=== PATIENT | female | born 1975 | race Two or more races ===

== ENCOUNTER 2023-11-16 15:30 | Outpatient (REF) | payer OTHER, SELFPAY | END 2023-11-16 15:31 | disposition home or self-care (01) | LOC: LAB 15:30 | PROVIDERS: PCP Family Medicine; Visit Provider Obstetrics & Gynecology | DX: N84.1 Polyp of cervix uteri (principal) | CPT/HCPCS: 88305 ==

== ENCOUNTER 2024-02-06 10:54 | Outpatient (OUT) | payer OTHER, SELFPAY ==
--- NOTE | 2024-02-06 11:06 | ECG_ITS ---
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
== END 2024-02-06 10:55 | disposition home or self-care (01) ==
LOC: PST 10:56
PROVIDERS: PCP Family Medicine; Visit Provider Obstetrics & Gynecology
DX: Z01.810 Encounter for preprocedural cardiovascular examination (principal); R10.2 Pelvic and perineal pain; N84.1 Polyp of cervix uteri; N94.89 Other specified conditions associated with female genital organs and menstrual cycle
CPT/HCPCS: 93005

== ENCOUNTER 2024-02-17 07:06 | Day surgery (SDC) | payer OTHER, SELFPAY ==
[2024-02-06 11:31] VITALS: BP 113/72; PULSE 78; TEMP 36.3; O2SAT 97; BMI 26.8
[2024-02-17] VITALS (10 sets, daily range): BP systolic 98–114; BP diastolic 56–80; PULSE 66–83; TEMP 36.4–36.6; O2SAT 95–99; BMI 27.1
--- OUTSIDE RECORDS SUMMARY | 2024-02-17 07:08 | XMS_ITS | CCD ---
Author Organization [facility] Care Team Providers Care Platform Builder Name Role Phone Hawa DO, Roxanne G Primary Care Provider Maritza Chaudhry MD Primary Care Provider CHERI BALL Attending Unavailable CHERI BALL Referring Unavailable HAWA, ROXANNE G Primary Care Unavailable DO Kinza Nava Attending Provider Bashir MOLD WORKER, Heidi Unavailable HAWA, ROXANNE G Referring Unavailable ELIOT BROWN Attending Unavailable PENELOPE MUSE Attending Unavailable HAWA, ROXANNE G Referring Unavailable PENELOPE MUSE Attending Unavailable HAWA, ROXANNE G Referring Unavailable TATJOHNNY HUITRON Attending Unavailable HAWA, ROXANNE G Referring Unavailable PENELOPE MUSE Attending Unavailable HAWA, ROXANNE G Referring Unavailable ALMAZ PENELOPE Attending Unavailable HAWA, ROXANNE G Referring Unavailable TATTERSJOHNNY MORRIS Attending Unavailable HAWA, ROXANNE G Referring Unavailable PENELOPE MUSE Attending Unavailable HAWA, ROXANNE G Referring Unavailable PENELOPE MUSE Attending Unavailable HAWA, ROXANNE G Referring Unavailable BLACKSTON, ELIOT T Attending Unavailable HAWA, ROXANNE G Referring Unavailable KAMPFERHEIDI Attending Unavailable ELIOT BROWN T Attending Unavailable HAWA, ROXANNE G Referring Unavailable BLACKSTON, ELIOT T Attending Unavailable HAWA, ROXANNE G Referring Unavailable HAWA, ROXANNE G Attending Unavailable CHERI BALL Attending Unavailable CHERI BALL Referring Unavailable CHERI BALL Attending Unavailable JR. COLÓN GEORGE C Attending Unavaila ble HEIDI CAMEJO Attending Unavailable HEIDI CAMEJO Attending Unavailable HEIDI CAMEJO Attending Unavailable JS GONSALEZ Attending Unavailable JS GONSALEZ Referring Unavailable KINZA NAVA Attending Unavailable JS GONSALEZ Referring Unavailable KINZA NAVA Attending Unavailable Kinza Nava Attending Unavailable Kinza Nava Admitting Unavailable Medications Current Medications Medication Drug Class(es) Dates Sig (Normalized) Sig (Original) chondroitin sulfates 1200 mg / glucosamine sulfate 1500 mg oral capsule (12 sources) Glucosamine-Mandeep droi tin 500-400 MG capsule Glucosamine Chondro Complex Active cyclobenzaprine hydrochloride 10 mg oral tablet (6 sources) Muscle Relaxant Start: 05-16-2023 End: 05-21-2023 take 1 tablet by mouth three times daily as needed for muscle spasms cyclobenzaprine (Flexeril) 10 MG tablet Indications: Chronic right shoulder pain Take 1 tablet (10 mg) by mouth 3 (three) times a day as needed for muscle spasms for up to 5 days 15 tablet 0 05/16/2023 05/21/2023 Active Fish Oils (10 sources) omega-3 (FISH OI L) 300 MG capsule Fish Oil 0 Active loratadine 10 mg oral tablet (12 sources) loratadine (Claritin) 10 MG tablet 1 (one) time each day at the same time Active Multiple Vitamins-Minerals (MULTI COMPLETE PO) (12 sources) Multiple Vitamins-Minerals (MULTI COMPLETE PO) 1 (one) time each day at the same time Active Multiple Vitamin s-Minerals (MULTI COMPLETE PO) 1 (one) time each day at the same time 0 Active potassium nitrate 0.05 mg/mg / sodium fluoride 0.011 mg/mg toothpaste (12 sources) Start: 02-03-2023 Sodium Fluorid e 5000 Sensitive 1.1-5 % dental gel BRUSH WITH A PEA SIZED AMOUNT TWICE DAILY (IN PLACE OF REGULAR TOOTHPASTE) 02/03/2023 Active terbinafine 250 mg oral tablet (10 sources) Allylamine Antifungal Start: 03-16-2023 End: 06-14-2023 take 1 tablet by mouth in the morning terbinafine (LamISIL) 250 MG tablet Indications: Onychomycosis Take 1 tablet (250 mg) by mouth in the morning. 90 tablet 1 03/16/2023 06/14/2023 Active Problems Active Problems Problem Classification Problem Date Documented Date Episodic/Chronic Abdominal pain (2 sources) Pain in female pelvis; Translations: [Pelvic and perineal pain] Onset: 01-19-2024 01-19-2024 Episodic Disorders of lipid metabolism (12 sources) Mixed hyperlipidemia; Translations: [Mixed hyperlipidemia] Onset: 03-16-2023 03-16-2023 Chronic Menopausal disorders (12 sources) Perimenopausal state; Translations: [Menopausal and female climacteric states] Onset: 03-16-2023 03-16-2023 Chronic Menstrual disorders (20 sources) Amenorrhea; Translations: [Amenorrhea, unspecified] Onset: 03-16-2023 03-16-2023 Chronic Nonmalignant breast conditions (12 sources) Fibrocystic change of left breast; Translations: [Diffuse cystic mastopathy of left breast] Onset: 03-16-2023 03-16-2023 Chronic Other connective tissue disease (3 sources) Musculoskeletal disorder of the neck; Translations: [Disorder of muscle, unspecified] 05-12-2023 Episodic Other female genital disorders (2 sources) Polyp of cervix; Translations: [Polyp of cervix uteri] Onset: 01-19-2024 01-19-2024 Episodic Other female genital disorders (2 sources) Lesion of endometrium; Translations: [Other specified conditions associated with female genital organs and menstrual cycle] Onset: 01-19-2024 01-19-2024 Episodic Other non-traumatic joint disorders (1 source) Other specific joint derangements of right shoulder, not elsewhere classified; Translations: [Other specific joint derangements of right shoulder, not elsewhere classified] Onset: 06-27-2023 Chronic Other non-traumatic joint disorders (3 sources) Shoulder pain; Translations: [Pain in right shoulder] 05-12-2023 Episodic Other non-traumatic joint disorders (5 sources) Chronic pain of right upper limb; Translations: [Pain in right shoulder] 05-12-2023 Episodic Residual codes; unclassified (2 sources) Flushing; Translations: [Flushing] Onset: 01-19-2024 01-19-2024 Episodic Past or Other Problems Problem Classification Problem Date Documented Da te Episodic/Chronic Fracture of lower limb (12 sources) Closed fracture of metatarsal bone; Translations: [Fracture of unspecified metatarsal bone(s), unspecified foot, initial encounter for closed fracture] Onset: 03-16-2023 03-16-2023 Episodic Other skin disorders (12 sources) Ingrowing nail; Translations: [Ingrowing nail] Onset: 03-16-2023 03-16-2023 Episodic Phlebitis; thrombophlebitis and thromboembolism (12 sources) Acute deep venous thrombosis of tibial vein of right leg; Translations: [Acute embolism and thrombosis of right tibial vein] Onset: 03-16-2023 03-16-2023 Episodic Urinary tract infections (12 sources) Urinary tract infectious disease; Translations: [Urinary tract infection, site not specified] Onset: 03-16-2023 03-16-2023 Episodic Varicose veins of lower extremity (12 sources) Varicose veins of lower extremity; Translations: [Asymptomatic varicose veins of unspecified lower extremity] Onset: 03-16-2023 03-16-2023 Episodic Results Test Name Value Interpretation Reference Range Facility Pathology Request for Lab Co rpon 11-16-2023 Pathology Request for Lab Kalani Normal [facility] Comment on above: Order Comment: PATHO LOGY GRAIN WEIGHER SPECIMEN Result Comment: See report. Scanned copy available in EMR. PERFORMED BY: [place] [address] PATHOLOGIST SOFTWARE [employer]IONS ARCHITECT GENI NEGRO M.D. Performed By: #### P ATH TO [facility] #### [address] US PELVIS TRANSVAGINALon US PELVIS TRANSVAGINAL EXAM: Pelvic Ultrasound, Transvaginal. REASON FOR EXAM: Pelvis pain, irregular bleeding. COMPARISON: None TECHNIQUE: High-resolution ultrasound is performed in the pelvis with color flow Doppler. FINDINGS: Transabdominal Imaging - Not performed. Transvaginal Imaging: Uterus is typical in configuration. There are multiple hypoechoic myometrial masses. The largest of these anteriorly measures 2.0 and 1.6 cm respectively. Smaller similar-appearing hypoechoic masses are noted perhaps elsewhere. There are nabothian cysts. Endometrium is not well depicted but echogenic and 4 mm. There is trace free pelvic fluid. Right ovary appears normal with a appropriate Doppler flow. Left ovary appears normal with appropriate Doppler flow. No adnexal mass is apparent Measurements: Uterus: 9.1 x 6.0 x 4.7 cm EM: 0.4 cm Right Ovary: 3.1 x 1.8 x 2.0 cm Left Ovary: 2.2 x 1.1 x 1.3 cm IMPRESSION: Hypoechoic myometrial masses likely representing fibroids. *This report is generated using voice recognition reporting (Giggzo). On occasion Philz Coffeecribe erroneously drops words from the report or replaces the spoken word with similar sounding words. Please call with any questions/concerns regarding this report.* Dictated and transcribed 10/31/23/dpd This report has been electronically signed and approved by the interpreting radiologist. Electronically Signed Carl Conde M.D. 2023-11-01 08:17:49 Normal Not Available Cytology Cervical or vaginal smear or scraping studyOrdered By: Mel Rosenberg on 10-18-2023 SANTIAGO Lindsey e MR SHOULDER RT WO CONTon MR SHOULDER RT WO CONT MR SHOULDER RT WO CONT History: Right shoulder pain for 4 months Exam/Technique: Multiplanar, multisequence MR imaging is obtained of the right shoulder without intravenous contrast. Comparison: No recent radiographs available Findings: AC joint and humeral head: No evidence of os acromiale or Hill-Sachs lesion. Type II acromial undersurface paralleling the shape of the humeral head. No significant bursal fluid. Minor subcortical change of the humeral head compatible with changes from insertional tendinosis. Rotator cuff tendons: There is minimal tendinosis distal infraspinatus fibers. No evidence of rotator cuff tear. Normal volume and signal intensity of the supraspinatus, infraspinatus and subscapularis. Biceps tendon: Normal signal intensity with intact attachment to the superior labral anchor. Joint space, bony glenoid and labrum: No joint fluid or effusion. Labrum appears intact on this nonarthrographic study. No focal cartilage defects of the glenoid or humeral surface. IMPRESSION: * Essentially negative/normal exam. Minimal degenerative change of the humeral head. No evidence rotator cuff tear, inflammatory focus or specific abnormality to correlate with the patient's symptoms. Consider referred pain. Finalized by Quinn Gibson DO on 06/29/2023 9:59 AM Normal [facility] BI MAMMOGRAM SCREENING TOMOS YNTHESIS BILATERALon 04-08-2023 BI MAMMOGRAM SCREENING TOMOSYNTHESIS BILATERAL This is a summary report. The complete report is available in the patient's medical record. If you cannot access the medical record, please contact the sending organization for a detailed fax or copy. EXAMINATION: BI MAMMOGRAM SCREENING TOMOSYNTHESIS BILATERAL CLINICAL HISTORY: screening COMPARISON: April 07, 2022 . RESULT: Digital mammography and 3D tomosynthesis of bilateral breasts was performed. There are scattered areas of fibroglandular density. There is no suspicious mass, asymmetry, architectural distortion, or calcification. Overall appearance stable. IMPRESSION: BIRADS 1 - Negative. Follow-up: Routine Screening Mamm . Board Certified Radiologists. Accredited by the ACR and FDA. MAMMOGRAPHY IS VERY IMPORTANT TO YOUR HEALTH. THE [employer] GUIDELINES RECOMMEND THAT WOMEN 40 YEARS OF AGE AND OLDER SHOULD HAVE A MAMMOGRAM EVERY YEAR. A REMINDER LETTER WILL BE SENT AT THE APPROPRIATE TIME. THIS FACILITY UTILIZES A REMINDER SYSTEM TO ENSURE ALL PATIENTS RECEIVE REMINDER NOTIFICATIONS AT THE APPROPRIATE TIME BASED ON THE RECOMMENDATIONS OF THIS EXAM. THIS INCLUDES REMINDERS FOR ROUTINE SCREENING MAMMOGRAMS, DIAGNOSTIC MAMMOGRAMS IN WHICH THE PATIENT IS ASKED TO RETURN FOR ADDITIONAL VIEWS, OR OTHER BREAST IMAGING INTERVENTIONS WHEN APPROPRIATE. THE PATIENT WILL BE PLACED IN THE APPROPRIATE REMINDER SYSTEM INCLUDING A REMINDER AT THE APPROPRIATE TIME FOR ANY PENDING ADDITIONAL VIEWS. TRANSCRIBED BY: ELECTRONICALLY SIGNED BY: Darrell Jaramillo MD Normal Not Available Q - TISSUE PATHOLOGYon 05-13 A COMMENT The specimen is negative for definitive evidence of atypia and malignancy. Normal [facility] Laborer Comment on above: Order Comment: [facility] Testing performed at: [facility], [address], [address], [place], [address], Bag Tester: Tahmina Ornelas [facility] Collection Date/Time: [id number] [facility] Results Received Date/Time: [id number] [facility] Reported Date/Time: [id number] FASTING: UNKNOWN Performed By: #### 1 25F #### [facility] [address] [place] [address] A DIAGNOSIS SEE NOTE Normal [facility] Laborer Comment on above: Order Comment: [facility] performed at: [facility], [address], [address], [place] [address], Bag Tester: Tahmina Ornelas [facility] Collection Date/Time: [facility] Results Received Date/Time: [facility] Reported Date/Time: FASTING: UNKNOWN Result Comment: Frag ment compatible with benign endometrial polyp. Secretory endometrium with patchy stromal breakdown. Fragments of benign endocervical tissue and squamous epithelium. Performed By: #### 1 25F #### [facility] [address] [place] [address] A GROSS DESCRIPTION SEE NOTE Normal [place] Specialist Comment on above: Order Comment: [facility] Testing performed at: [facility], [facility], [facility] [place], [address] [place] [address], Bag Tester: Tahmina Ornelas [facility] Collection Date/Time: [facility] Results Received Date/Time: [facility] Reported Date/Time: FASTING: UNKNOWN Result Comment: Rece ived in formalin is a specimen labeled endometrial biopsy that consists of multiple, irregular fragments of sanchez tissue admixed with blood and mucoid material, measuring in aggregate 2.5 x 1.0 x 0.2 cm. Submitted entirely in one cassette(s). SW Performed By: #### 1 25F #### [facility] [address] [place] [address] A SOURCE Endometrium, biopsy: Normal [facility] Laborer Comment on above: Order Comment: [facility] Testing performed at: [facility], [facility], [address] [facility], [address], [place], [place], [address] [place] [address], Bag Tester: Tahmina Ornelas [facility] Collection Date/Time: [facility] Results Received Date/Time: [facility] Reported Date/Time: FASTING: UNKNOWN Performed By: #### 1 25F #### [facility] [address] [place] [address] CLINICAL INFORMATION N92.1 Normal [facility] Laborer Comment on above: Order Comment: [facility] performed at: [facility], [facility], [address], [address], [place], [address], Bag Tester: Tahmina Ornelas [facility] Collection Date/Time: [facility] Results Received Date/Time: [facility] Reported Date/Time: FASTING: UNKNOWN Performed By: #### 1 25F #### [facility] [address] [place] [address] Pathologist Cyto stain Nom (Cvx/Vag) [ID] SEE NOTE Normal [facility] Comment on above: Order Comment: [facility] performed at: [facility], [facility], [address], [address], [place], [address], Bag Tester: Tahmina Ornelas [facility] Collection Date/Time: [facility] Results Received Date/Time: [facility] Reported Date/Time: FASTING: UNKNOWN Result Comment: Misti Torrez M.D. Board certified in Anatomic Pathology and Clinical Pathology (electronic signature) [phone] Performed By: #### 1 25F #### [facility] [address] [place] [address] US Pelvic, Transvaginalon US Pelvic, Transvaginal FINDINGS: Uterus 9.6 x 7.8 x 5.8 cm Endometrium 11 mm Right Ovary4.7 x 3.3 x 2.8 cm Left Ovary3.2 x 1.8 x 1.6 cm Retroversion of the uterine body/fundus. Heterogeneous areas consistent with at least three intramural fibroids deep within the myometrium with extrinsic impression, mild invasion upon the submucosal space, all three approximating 1 x 2 cm. Heterogeneous endometrium, mild thickening within the fundus, no cystic changes or focal mass. Bilateral ovarian benign appearing, simple, septated cysts, largest right 2.0 x 1.3 x 2.1 cm, one on the left 1.0 x 1.4 x 1.6 cm. Small amount of fluid within the left adnexa and anterior cul-de-sac. IMPRESSION: 1. Uterine findings consistent with at least three intramural/partial submucosal fibroids 2. Heterogeneous hypoechogenicity of the endometrium, no focal mass, presumed submucosal fibroid involvement. Recommend at minimum follow-up examinations if tissue sampling is not performed. Report reported and signed by Darrell Jaramillo on 05/05/2021 [id number] Normal [facility] Vital Signs Date Time Vital Sign Value Performing Clinician Soy malloy 01-19-2024 09:37-0400 Body height 167.6 cm Kinza Brandy DO Work Phone: [facility] 01-19-2024 09:37-0400 Body mass index (BMI) [Ratio] 27.12 kg/m2 Kinza Brandy DO Work Phone: [facility] 01-19-2024 09:37-0400 Body weight 76.2 kg Kinza Brandy DO Work Phone: [facility] 01-19-2024 09:37-0400 Diastolic blood pressure 74 mm[Hg] Kinza Brandy DO Work Phone: [facility] 01-19-2024 09:37-0400 Systolic blood pressure 116 mm[Hg] Kinza Brandy DO Work Phone: [facility] 05-16-2023 10:06-0500 Body height 167.6 cm Heidi Camejo MOLD WORKER Work Phone: [facility] 05-16-2023 10:06-0500 Body mass index (BMI) [Ratio] 27.37 kg/m2 Heidi Camejo MOLD WORKER Work Phone: [facility] 05-16-2023 10:06-0500 Body weight 76.93 kg Heidi Camejo MOLD WORKER Work Phone: [facility] 05-16-2023 10:06-0500 Diastolic blood pressure 80 mm[Hg] Heidi Camejo MOLD WORKER Work Phone: [facility] 05-16-2023 10:06-0500 Heart rate 79 /min Heidi Camejo MOLD WORKER Work Phone: [facility] 05-16-2023 10:06-0500 SaO2% (BldA) [Mass fraction] 98 % Heidi Camejo MOLD WORKER Work Phone: [facility] 05-16-2023 10:06-0500 Systolic blood pressure 118 mm[Hg] Heidi Camejo MOLD WORKER Work Phone: [facility] Encounters Encounter Date Encounter Type Care Provider Facility Start: 01-19-2024 End: 01-19-2024 Bamboo flowsheet Kinza Brandy DO Work Phone: [facility] Start: 01-19-2024 End: 01-19-2024 Bamboo flowsheet Kinza Brandy DO Work Phone: [facility] Start: 01-19-2024 End: 01-19-2024 Office outpatient visit 15 minutes Kizna Brandy DO Work Phone: [facility] Comment on above: Pre-op examination; Pelvic pain in female; Cervical polyp; Endometrial mass; Hot flashes Start: 01-19-2024 End: 01-19-2024 Preprocedural examination done Kinza Brandy DO Work Phone: [facility] Start: 01-19-2024 End: 01-19-2024 ambulatory KINZA BRANDY Not Available Start: 11-16-2023 End: 11-16-2023 Departed Referred DO Kinza Brandy Work Phone: [facility] Start: 11-16-2023 End: 11-16-2023 ambulatory KINZA BRANDY [facility] Work Phone: Start: 10-31-2023 End: 10-31-2023 ambulatory JS L FLORO Not Available Start: 10-18-2023 End: 10-18-2023 ambulatory JS L FLORO Not Available Start: 09-27-2023 End: 09-27-2023 ambulatory HEIDI KAMPFER Not Available Start: 08-23-2023 End: 08-23-2023 ambulatory HEIDI KAMPFER Not Available Start: 07-26-2023 End: 07-26-2023 ambulatory HEIDI KAMPFER Not Available Start: 06-29-2023 End: 06-29-2023 ambulatory KOBY LYNN Not Available Start: 06-27-2023 End: 06-28-2023 ambulatory CHERI BALL [facility] Start: 06-14-2023 End: 06-14-2023 ambulatory CHERI BALL Not Available Start: 05-25-2023 End: 05-25-2023 ambulatory CHERI BALL Not Available Start: 05-19-2023 Bamboo flowsheet Eliot Lou Jonathon kston PT Work Phone: [facility] Start: 05-19-2023 Bamboo flowsheet Eliot Lou Jonathon kston PT Work Phone: [facility] Start: 05-19-2023 End: 05-19-2023 Treatment Eliot Brookston PT Work Phone: [facility] Comment on above: Right anterior shoul nieves pain (Primary Dx); Musculoskeletal disorder involving upper trapezius muscle; Chronic right shoulder pain Start: 05-17-2023 Bamboo flowsheet Eliot Lou Jonathon kston PT Work Phone: [facility] Start: 05-17-2023 Bamboo flowsheet Eliot Lou Jonathon kston PT Work Phone: [facility] Start: 05-17-2023 End: 05-17-2023 Treatment Eliot Brown PT Work Phone: [facility] Comment on above: Right anterior shoul nieves pain (Primary Dx); Musculoskeletal disorder involving upper trapezius muscle; Chronic right shoulder pain Start: 05-16-2023 Bamboo flowsheet Heidi Camejo MOLD WORKER Work Phone: [facility] Start: 05-16-2023 Bamboo flowsheet Heidi Camejo MOLD WORKER Work Phone: [facility] Start: 05-16-2023 End: 05-16-2023 ambulatory HEIDI CAMEJO Not Available Start: 05-16-2023 End: 05-16-2023 Office outpatient visit 15 minutes Heidi Camejo MOLD WORKER Work Phone: [facility] Comment on above: Chronic right should er pain (Primary Dx) Start: 05-13-2023 Chart abstracting Heidi aSuer isidro MOLD WORKER Work Phone: [facility] Start: 05-12-2023 Bamboo flowsheet Eliot Lou Jonathon luis miguel PT Work Phone: [facility] Start: 05-12-2023 Bamboo flowsheet Eliot Jihan Jonathon luis miguel PT Work Phone: [facility] Start: 05-12-2023 End: 05-12-2023 Treatment Eliot Brown PT Work Phone: [facility] Comment on above: Right anterior shoul nieves pain (Primary Dx); Musculoskeletal disorder involving upper trapezius muscle; Chronic right shoulder pain Start: 05-10-2023 End: 05-10-2023 ambulatory PENELOPE MUSE Not Available Start: 05-05-2023 End: 05-05-2023 ambulatory PENELOPE ALMAZ Not Available Start: 05-03-2023 End: 05-03-2023 ambulatory JOHNNY GELLER Not Available Start: 04-28-2023 End: 04-28-2023 ambulatory PENELOPE ALMAZ Not Available Start: 04-25-2023 End: 04-25-2023 ambulatory PENELOPE ALMAZ Not Available Start: 2023 End: 2023 ambulatory JOHNNY SHORTALL Not Available Start: 04-18-2023 End: 04-18-2023 ambulatory PENELOPE ALMAZ Not Available Start: 04-13-2023 End: 04-13-2023 ambulatory PENELOPE ALMAZ Not Available Start: 04-11-2023 End: 04-11-2023 ambulatory ELIOT Jihan KEVIN Not Available Start: 04-08-2023 End: 04-08-2023 ambulatory ROXANNEBIBI BURNHAME Not Available Start: 03-16-2023 End: 03-16-2023 ambulatory ROXANNE G HAWA Not Available Procedures Date Procedure Procedure Detail Performing Clinician Start: 10-18-2023 Microscopic observat ion [Identifier] in Cervix by Cyto stain Kinza Nava DO Work Phone: Start: 10-18-2023 Cytp cerv/vag auto t hin layer prep mnl screen Js Gonsalez CNM Work Phone: Start: 04-08-2023 Mammography Eliot swain PT Work Phone: Start: 06-04-2021 Colonoscopy Eliot swain PT Work Phone: Plan of Treatment Date Care Activity Detail Author Start: 06-05-2031 Screening for malign ant neoplasm of colon [facility] Start: 10-17-2028 Screening for malign ant neoplasm of cervix [facility] Start: 02-05-2025 Screening for malign ant neoplasm of cervix [facility] Start: 04-08-2024 Screening for malign ant neoplasm of breast Mammogram [facility] Start: 01-19-2024 End: 01-19-2024 Patient encounter procedure 01/19/2024 9:40 AM EDT Consult [facility] [address] [place] [id number] Kinza Nava, DO [address] [place] [address] Arrived [facility] Comment on above: Arrived Start: 12-04-2023 Influenza vaccination Influenza Vacc ine (#1) [facility] Start: 11-16-2023 [facility] Start: 05-25-2023 End: 05-25-2023 Patient encounter procedure 05/25/2023 1:30 PM EST Office Visit [facility] [address] [facility] [address] [place] [id number] Cheri Ball, PA [address] [facility] [address] [place] [address] [facility] Start: 05-19-2023 End: 05-19-2023 ambulatory [facility] Comment on above: Arrived Start: 05-17-2023 End: 05-17-2023 ambulatory [facility] Comment on above: Arrived Start: 05-16-2023 End: 05-16-2023 Patient encounter procedure 05/16/2023 10:00 AM EST Office Visit [facility] [address] LOVELACESAINT [facility] [place] [id number] Heidi Camejo MOLD WORKER [address] [facility] [place], [place] [id number] [facility] Start: 05-12-2023 End: 05-12-2023 ambulatory 05/12/2023 11:00 AM EST Treatment [facility] [address] [place] [id number] Eliot Brown, PT [address] [place] [address] Arrived [facility] Comment on above: Arrived Start: 1994 Screening for malign ant neoplasm of cervix Pap Smear [facility] Start: 1973 Screening for malign ant neoplasm of colon [facility] Immunizations Immunization Date Immunization Notes Care Provider Carmencita hernandez 03-16-2023 influenza, injectabl e, quadrivalent, preservative free Eliot Kevin PT Work Phone: [facility] 03-16-2023 influenza virus vacc ine, unspecified formulation Kinza Brandy DO Work Phone: [facility] 03-12-2022 influenza, injectabl e, quadrivalent, preservative free Eliot Kevin PT Work Phone: [facility] 02-09-2021 influenza, injectabl e, quadrivalent, contains preservative Eliot Kevin PT Work Phone: [facility] 02-06-2020 influenza, injectabl e, quadrivalent, contains preservative Eliot Ceciliaton PT Work Phone: [facility] 02-01-2019 seasonal influenza, intradermal, preservative free Eliot Kevin PT Work Phone: [facility] Payers Date Payer Category Payer Self-pay 2015 [facility] Care O (unspecified) [id number] 2015 Private Health Insurance [id number] 1973 Unknown [id number] 2.16.840.1.267667.3.579.2.1286 1973 Unknown [id number] 2.16.840.1.539243.3.579.2.1258 1973 Unknown [id number] 2.16.840.1.014122.3.579.2.1258 1973 Unknown [id number] 2.16.840.1.645753.3.579.2.1258 1973 Unknown [id number] 2.16.840.1.129306.3.579.2.1258 1973 Unknown [id number] 2.16.840.1.885118.3.579.2.1258 1973 Unknown [id number] 2.16.840.1.436820.3.579.2.1258 1973 Unknown [id number] 2.16.840.1.866363.3.579.2.1258 1973 Unknown [id number] 2.16.840.1.500345.3.579.2.1258 1973 Unknown [id number] 2.16.840.1.540023.3.579.2.1258 1973 Unknown [id number] 2.16.840.1.057744.3.579.2.125 1973 Unknown [id number] 2.16.840.1.842796.3.579.2.1259 1973 Unknown [id number] 2.16.840.1.860438.3.579.2.1258 1973 Unknown [id number] 2.16.840.1.824500.3.579.2.1258 1973 Unknown [id number] 2.16.840.1.631935.3.579.2.1259 1973 Unknown [id number] 2.16.840.1.743615.3.579.2.9 1973 Unknown [id number] 2.16.840.1.885529.3.579.2.9 1973 Unknown [id number] 2.16.840.1.260050.3.579.2.1258 1973 Unknown [id number] 2.16.840.1.632511.3.579.2.9 1973 Unknown [id number] 2.16.840.1.238794.3.579.2.1258 1973 Unknown [id number] 2.16.840.1.813868.3.579.2.9 1973 Unknown [id number] 2.16.840.1.221255.3.579.2.1258 1973 Unknown [id number] 2.16.840.1.001937.3.579.2.1258 1973 Unknown [id number] 2.16.840.1.746979.3.579.2.1258 1973 Unknown [id number] 2.16.840 .1.183713.3.579.2.9 1973 Unknown [id number] 2.16.840.1.849143.3.579.2.1258 1973 Unknown [id number] 2.16.840 .1.812902.3.579.2.9 Social History Date Type Detail Facility Start: 03-16-2023 Tobacco smoking stat [facility] Never smoked tobacco [facility] Start: 03-16-2023 Tobacco use and exposure Smokeless tobacco non-user [facility] Start: 03-16-2023 End: 05-16-2023 Alcohol intake Ex-drinker (finding) [facility] Start: 03-16-2023 End: 05-16-2023 History of Social function [facility] Start: 03-16-2023 End: 05-16-2023 Tobacco use panel [facility] Start: 03-16-2023 Alcohol Comment caffeine: 1-2 cups per day [facility] Start: 1975 Sex Assigned At Not on file [facility] Within the last year , have you been afraid of your partner or ex-partner? No [facility] Are you now , , , , never or living with a partner? [facility] How often to you hav e a drink containing alcohol? 2-4 times a month [facility] How many standard drinks containing alcohol do you have on a typical day? 1 or 2 [facility] How often do you hav e 6 or more drinks on 1 occasion? Never [facility] How hard is it for y ou to pay for the very basics like food, housing, medical care, and heating Not hard at all [facility] Do you feel stress - tense, restless, nervous, or anxious, or unable to sleep at night because your mind is troubled all the time - these days [OSQ] Only a little [facility] (I/We) worried wheisabelle er (my/our) food would run out before (I/we) got money to buy more. Never true [facility] Start: 1975 Sex Assigned At Female F [facility] Start: 11-16-2023 End: 01-19-2024 Alcoholic beverage intake Current drinker of alcohol (finding) [facility] Start: 08-23-2023 Alcohol Comment caffeine: 2-3 cups per day [facility] Clinical Notes 05-12-2023 to 01-19-2024 Annabelle Pizano - 01/19/2024 9:40 AM Alec Brown, PT - 05/19/2023 10:00 AM Ludin Brown, PT - 05/17/2023 10:30 AM Eduar Camejo MOLD WORKER - 05/16/2023 10:00 AM EST Note Date & Type Note Facility 01-19-2024 History of Presen t illness Narrative Reason for Appointment: Patient ID: Asha Valadez is a 48 y.o. female who presents for Pre-op Visit Patient presents today for Pre Op appointment. Patient is scheduled to undergo D&C Hysteroscopy, possible Myosure on 02/17/[address] Nava at [facility]. MEDICATIONS Current Outpatient Medications Medication Instructions Glucosamine-Chondroitin 500-400 MG capsule Glucosamine Chondro Complex loratadine (Claritin) 10 MG tablet Every 24 hours Multiple Vitamins-Minerals (MULTI COMPLETE PO) Every 24 hours Sodium Fluoride 5000 Sensitive 1.1-5 % dental gel BRUSH WITH A PEA SIZED AMOUNT TWICE DAILY (IN PLACE OF REGULAR TOOTHPASTE) ALLERGIES No Known Allergies PROBLEMS Active Ambulatory Problems Diagnosis Date Noted Acute deep vein thrombosis (DVT) of tibial vein of right lower extremity (CMS/HCC) 03/16/2023 Amenorrhea 03/16/2023 Closed fracture of metatarsal bone 03/16/2023 Diffuse cystic mastopathy of left breast 03/16/2023 Frequent menstruation 03/16/2023 Ingrown fingernail 03/16/2023 Menorrhagia with irregular cycle 03/16/2023 Mixed hyperlipidemia (CMS/HCC) 03/16/2023 Perimenopausal 03/16/2023 UTI (urinary tract infection), uncomplicated 03/16/2023 Varicose veins of lower extremity 03/16/2023 Resolved Ambulatory Problems Diagnosis Date Noted No Resolved Ambulatory Problems Past Medical History: Diagnosis Date Asymptomatic varicose veins of right lower extremity Fibrocystic disease of breast H/O urinary tract infection Oral contraceptive use HISTORY PAST MEDICAL HISTORY SOCIAL HISTORY Past Medical History: Diagnosis Date Acute deep vein thrombosis (DVT) of tibial vein of right lower extremity (CMS/HCC) 2017 Asymptomatic varicose veins of right lower extremity Fibrocystic disease of breast Frequent menstruation H/O urinary tract infection Oral contraceptive use Social History Tobacco Use Smoking status: Never Smokeless tobacco: Never Vaping Use Vaping status: Never Used Substance Use Topics Alcohol use: Yes Alcohol/week: 1.0 standard drink of alcohol Types: 1 Glasses of wine per week Comment: caffeine: 2-3 cups per day Drug use: Never FAMILY HISTORY Family History Problem Relation Name Age of Onset Osteoporosis Mother Lesly Haslinger Hypertension Mother Lesly Hasangelika Bipolar disorder Father Fransisco Hasangelika Hypertension Father Fransisco Hasangelika Heart disease Maternal Grandmother Colon cancer Maternal Grandfather Heart failure Paternal Grandmother Mardel Heart disease Paternal Grandmother Mardel Rheum arthritis Mother's Sister Gillian SURGICAL HISTORY Past Surgical History: Procedure Laterality Date APPENDECTOMY 1985 REVIEW OF SYSTEMS Review of Systems: Review of Systems Constitutional: Negative. HENT: Negative. Eyes: Negative. Respiratory: Negative. Cardiovascular: Negative. Gastrointestinal: Negative. Genitourinary: Positive for pelvic pain. Musculoskeletal: Negative. Skin: Negative. Neurological: Negative. All other systems reviewed and are negative. Hematological: Negative. Endocrine: Negative. Allergic/Immunologic: Negative. OBJECTIVE Objective: Physical Exam Constitutional: Appearance: Normal appearance. She is well-developed. Cardiovascular: Rate and Rhythm: Normal rate and regular rhythm. Pulmonary: Effort: Pulmonary effort is normal. Breath sounds: Normal breath sounds. Abdominal: General: Bowel sounds are normal. There is no distension. Palpations: Abdomen is soft. Tenderness: There is no abdominal tenderness. There is no guarding or rebound. Musculoskeletal: General: No swelling. Normal range of motion. Right lower leg: No edema. Left lower leg: No edema. Neurological: Mental Status: She is alert and oriented to person, place, and time. Skin: General: Skin is warm and dry. Psychiatric: Mood and Affect: Mood normal. Behavior: Behavior normal. Vitals and nursing note reviewed. Exam conducted with a energy project manager present. Vitals: Estimated body mass index is 27.12 kg/m as calculated from the following: Height as of this encounter: 5' 6 . Weight as of this encounter: 168 lb. BP: 116/74 No LMP recorded. ASSESSMENT & PLAN ICD-10-CM 1. Pre-op examination Z01.818 2. Pelvic pain in female R10.2 3. Cervical polyp N84.1 4. Endometrial mass N94.89 Pre Op: Patient is doing well but has complaints of pelvic pain. I have discussed conservative management vs. surgical management with the patient in detail and patient desires surgical management at this time. Patient will undergo D&C Hysteroscopy, possible Myosure on 02/17/2024. Surgical consents were signed, mmc was reviewed, and patient is to proceed to [facility] OR. -Patient voiced that she is still having hot flashes and this will be addressed at post-op appointment if symptoms do not improve. Follow Up: Patient is to follow up between 1-2 weeks post operative to assess proper healing and recovery from procedure. Documented by Michelle Engle LPN on behalf of: Kinza Nava DO documented in this encounter [facility] 05-19-2023 History of Presen t illness Narrative Physical Therapy Physical Therapy Treatment Visit Patient Name: Asha Valadez Today's Date: 05/19/2023 Encounter Diagnoses Name Primary? Right anterior shoulder pain Yes Musculoskeletal disorder involving upper trapezius muscle Chronic right shoulder pain Visit number: 12 Supervised Time: 25 minutes Total Time: 45 minutes Time In: 10:00 AM Time Out: 10:45 AM History: Pt. Presents to PT with c/c of right anterior shoulder pain. No THIAGO. Shoulder pain started 2 months ago. 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 No images. Increased shoulder pain in the mornings. Precautions: as tolerated Subjective/Pain: Pt. Reports of increased right anterior shoulder and chest wall soreness after last PT session. Pt. Reports of increased right shoulder pain after lifting objects the next day. Objective: PT Evaluation (04/11/23) Neck ROM: flexion normal, extension decreased 25%, R rotation 45 deg, L rotation 40 deg, R SB 40 deg, L SB 40 deg. Shoulder ROM: normal in all planes Flexibility: moderate right upper trapezius muscle tightness, moderate pectoralis muscle tightness Strength: 4/5 shoulder, 4-/5 scapular strength Palpation: increased right upper trapezius muscle tone. Posture: minor forward head posture Goals: To be met by 4-6 weeks 1) Pt. Will report of 0/10 right neck/shoulder pain while reaching/lifting objects to help improve her functional mobility. (50% met) 2) Pt. Will demonstrate normal upper trapezius muscle flexibility to help decrease pain and improve her functional mobility with daily tasks. (50% met) 3) Pt. Will demonstrate normal pectoralis muscle to help improve her posture to decrease stress on cervical spine.(50% MET 4) Pt. Will demonstrate 5/5 scapular strength to help improve upright posture to decrease pain and improve her functional mobility with work tasks. (75% MET) 5) Pt. Will score 70 or greater on UEFS. TREATMENT: Manual: supine: cervical distraction, SOR, cervical mobs, right UT muscle MFR, MET right UT, manual right pec stretching (25 minutes) Therapeutic Exercise: guided patient through skilled therapeutic exercises; exercises in grid (held minutes) Additional unsupervised. Therapeutic Activity: Neuromuscular Re-education: Modalities: sitting: IF with MHP to right upper trapezius (15 minutes) Assessment: The patient has participated in 12 outpatient PT sessions since start of care on 04/11/23. Pt. Will benefit from skilled PT services. Pt. Has appointment with SRINATH Russ on 05/25/23. Pt. Demonstrate plateau of progress toward PT goals. Pt. Demonstrate less right upper trapezius muscle pain/tightness but continues to have right anterior shoulder pain. Pt. Demonstrates good shoulder ROM/strength but pain still present. TTP over bicep tendon today. Plan: Pt. Will be discharged due to plateau of progress toward PT goals. Pt. Was instructed to call our office if she has questions. I hereby deem this POC medically necessary. Please sign below and fax back to the number below. Physician Signature: ___ Date: documented in this encounter [facility] 05-17-2023 History of Presen t illness Narrative Physical Therapy Physical Therapy Treatment Visit Patient Name: Asha Valadez Today's Date: 05/18/2023 Encounter Diagnoses Name Primary? Right anterior shoulder pain Yes Musculoskeletal disorder involving upper trapezius muscle Chronic right shoulder pain Visit number: 11 Supervised Time: 45 minutes Total Time: 60 minutes Time In: 11:00 AM Time Out: 12:00 AM History: Pt. Presents to PT with c/c of right anterior shoulder pain. No THIAGO. Shoulder pain started 2 months ago. 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 No images. Increased shoulder pain in the mornings. Precautions: as tolerated Subjective/Pain: Pt. Continues to report of right anterior chest and right upper trapezius muscle pain mostly while lifting objects while at work. No progress since last PT session. Objective: PT Evaluation (04/11/23) Neck ROM: flexion normal, extension decreased 25%, R rotation 45 deg, L rotation 40 deg, R SB 40 deg, L SB 40 deg. Shoulder ROM: normal in all planes Flexibility: moderate right upper trapezius muscle tightness, moderate pectoralis muscle tightness Strength: 4/5 shoulder, 4-/5 scapular strength Palpation: increased right upper trapezius muscle tone. Posture: minor forward head posture Goals: To be met by 4-6 weeks 1) Pt. Will report of 0/10 right neck/shoulder pain while reaching/lifting objects to help improve her functional mobility. (50% met) 2) Pt. Will demonstrate normal upper trapezius muscle flexibility to help decrease pain and improve her functional mobility with daily tasks. (50% met) 3) Pt. Will demonstrate normal pectoralis muscle to help improve her posture to decrease stress on cervical spine.(50% MET 4) Pt. Will demonstrate 5/5 scapular strength to help improve upright posture to decrease pain and improve her functional mobility with work tasks. (75% MET) 5) Pt. Will score 70 or greater on UEFS. TREATMENT: Manual: supine: cervical distraction, SOR, cervical mobs, right UT muscle MFR, MET right UT, manual right pec stretching (30 minutes) Therapeutic Exercise: guided patient through skilled therapeutic exercises; exercises in grid (15 minutes) Additional unsupervised. Therapeutic Activity: Neuromuscular Re-education: Modalities: sitting: IFC with MHP to right upper trapezius (15 minutes) Assessment: The patient has participated in 11 outpatient PT sessions since start of care on 04/11/23. Pt. Will benefit from skilled PT services. PT treatment to focus on improving flexibility and scapular/postural strength. Pt. Continues to demonstrate right anterior chest wall pain at pectoralis muscle, increase pain while lifting objects. Pt. Demonstrates plateau of progress with PT. Pt. Talked to PCP and she is being referred to ortho. Plan: Discharge next PT session I hereby deem this POC medically necessary. Please sign below and fax back to the number below. Physician Signature: ___ Date: documented in this encounter [facility] 05-16-2023 History of Presgail t illness Narrative Asha Valadez is a 48 y.o. female presents with chief complaint of Shoulder Pain (right) and Establish Care HPI: Shoulder Pain Patient complains of right shoulder pain. The symptoms began several months ago. Aggravating factors: no known event. Pain is located between the neck and shoulder and around the acromioclavicular (AC) joint. Discomfort is described as aching and sore. Symptoms are exacerbated by repetitive movements, overhead movements, and lying on the shoulder. Evaluation to date: PT . Therapy to date includes: home exercises which are not very effective and physical therapy which was not very effective. Per patient she has done 10 sessions of PT, and continues with pain in right shoulder. She spoke with her PT they advised her to come in and be reevaluated, and suggested seeing ortho. She does have 2 more sessions left. Her insurance did not cover XR, needed to have 6 wks of PT. Shoulder Pain SUBJECTIVE: MEDICATIONS: Current Outpatient Medications Medication Instructions Glucosamine-Chondroitin 500-400 MG capsule Glucosamine Chondro Complex loratadine (Claritin) 10 MG tablet Every 24 hours Multiple Vitamins-Minerals (MULTI COMPLETE PO) Every 24 hours omega-3 (FISH OIL) 300 MG capsule Fish Oil Sodium Fluoride 5000 Sensitive 1.1-5 % dental gel BRUSH WITH A PEA SIZED AMOUNT TWICE DAILY (IN PLACE OF REGULAR TOOTHPASTE) terbinafine (LAMISIL) 250 mg, Oral, Daily REVIEW OF SYMPTOMS: Review of Systems OBJECTIVE: Visit Vitals BP 118/80 (BP Location: Left arm, Patient Position: Sitting, BP Cuff Size: Adult) Pulse 79 Ht 5' 6 Wt 169 lb 9.6 oz SpO2 98% BMI 27.37 kg/m Smoking Status Never BSA 1.89 m Physical Exam Vitals reviewed. HENT: Head: Normocephalic and atraumatic. Nose: Nose normal. Mouth/Throat: Mouth: Mucous membranes are moist. Eyes: Pupils: Pupils are equal, round, and reactive to light. Cardiovascular: Rate and Rhythm: Normal rate and regular rhythm. Pulses: Normal pulses. Heart sounds: Normal heart sounds. Pulmonary: Effort: Pulmonary effort is normal. Breath sounds: Normal breath sounds. Musculoskeletal: Cervical back: Normal range of motion and neck supple. Right lower leg: No edema. Left lower leg: No edema. Comments: Right Shoulder: ROM WNL, moderate right upper trapezius and pectoralis muscle tightness Skin: General: Skin is warm and dry. Capillary Refill: Capillary refill takes less than 2 seconds. Findings: No rash. Neurological: General: No focal deficit present. Mental Status: She is alert and oriented to person, place, and time. ASSESSMENT AND PLAN: Assessment/Plan Diagnoses and all orders for this visit: Chronic right shoulder pain - cyclobenzaprine (Flexeril) 10 MG tablet; Take 1 tablet (10 mg) by mouth 3 (three) times a day as needed for muscle spasms for up to 5 days - Ambulatory referral to Orthopaedic Surgery; Future -Trial muscle relaxer. Refer to ortho for further evaluation documented in this encounter [facility] 05-12-2023 History of Presen t illness Narrative Physical Therapy Physical Therapy Treatment Visit Patient Name: Asha Valadez Today's Date: 05/12/2023 Encounter Diagnoses Name Primary? Right anterior shoulder pain Yes Musculoskeletal disorder involving upper trapezius muscle Chronic right shoulder pain Visit number: 10 Supervised Time: 45 minutes Total Time: 60 minutes Time In: 11:00 AM Time Out: 12:00 AM History: Pt. Presents to PT with c/c of right anterior shoulder pain. No THIAGO. Shoulder pain started 2 months ago. 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 No images. Increased shoulder pain in the mornings. Precautions: as tolerated Subjective/Pain: Pt. Continues to report of right anterior chest and right upper trapezius muscle pain mostly while lifting objects while at work. Reports of a plateau with PT treatment. Objective: PT Evaluation (04/11/23) Neck ROM: flexion normal, extension decreased 25%, R rotation 45 deg, L rotation 40 deg, R SB 40 deg, L SB 40 deg. Shoulder ROM: normal in all planes Flexibility: moderate right upper trapezius muscle tightness, moderate pectoralis muscle tightness Strength: 4/5 shoulder, 4-/5 scapular strength Palpation: increased right upper trapezius muscle tone. Posture: minor forward head posture Goals: To be met by 4-6 weeks 1) Pt. Will report of 0/10 right neck/shoulder pain while reaching/lifting objects to help improve her functional mobility. (50% met) 2) Pt. Will demonstrate normal upper trapezius muscle flexibility to help decrease pain and improve her functional mobility with daily tasks. (50% met) 3) Pt. Will demonstrate normal pectoralis muscle to help improve her posture to decrease stress on cervical spine.(50% MET 4) Pt. Will demonstrate 5/5 scapular strength to help improve upright posture to decrease pain and improve her functional mobility with work tasks. (75% MET) 5) Pt. Will score 70 or greater on UEFS. TREATMENT: Manual: supine: cervical distraction, SOR, cervical mobs, right UT muscle MFR, MET right UT, manual right pec stretching (30 minutes) DN performed by PT to R upper trap x2 needles Therapeutic Exercise: guided patient through skilled therapeutic exercises; exercises in grid (15 minutes) Additional unsupervised. Therapeutic Activity: Neuromuscular Re-education: Modalities: sitting: IFC with MHP to right upper trapezius (15 minutes) Assessment: The patient has participated in 10 outpatient PT sessions since start of care on 04/11/23. Pt. Will benefit from skilled PT services. PT treatment to focus on improving flexibility and scapular/postural strength. Right pectoralis muscle tightness/pain feeling, right UT tightness but no LTR with DN today. Right shoulder joint in rounded forward position still present. Pt. 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 Talked with patient if she would like to call PCP to get referral to ortho (SRINATH Russ) for further testing. Plan: Recommend outpatient PT 2x/week for 4-6 weeks per above PT POC pending patient progress and medical necessity standards I hereby deem this POC medically necessary. Please sign below and fax back to the number below. Physician Signature: ___ Date: documented in this encounter [facility] Evaluation note Diagnosis Right anterior shoulder pain- Primary Musculoskeletal disorder involving upper trapezius muscle Chronic right shoulder pain Pain in joint, shoulder region documented in this encounter [facility] Diagnosis Chronic right shoulder pain- Primary Pain in joint, shoulder region documented in this encounter [facility]* Diagnosis Right anterior shoulder pain- Primary Musculoskeletal disorder involving upper trapezius muscle Chronic right shoulder pain Pain in joint, shoulder region documented in this encounter [facility]* Diagnosis Right anterior shoulder pain- Primary Musculoskeletal disorder involving upper trapezius muscle Chronic right shoulder pain Pain in joint, shoulder region documented in this encounter [facility] noteNo assessment information availableHocking [facility] Work Phone: Evaluation note* Diagnosis Pre-op examination Pelvic pain in female Unspecified symptom associated with female genital organs Cervical polyp Mucous polyp of cervix Endometrial mass Hot flashes [facility] Consultation (Routine) - Pending Review Specialty Diagnoses / Procedures Referred By Glenna lou Referred To Contact Orthopaedic Surgery Diagnoses Chronic right shoulder pain Heidi Camejo NP [address] [place] [address] Cheri Ball PA [address] [address] Referral ID Status Reason Start Date Expiration Date Visits Requested Visits Authorized [id number] Pending Review Specialty Services Required 05/16/2023 11/12/2023 1 1 [facility] Summary Purpose Family History No Family History Records FoundNo Family History Records FoundNo Family History Records FoundNo Family History Records Found Advance Directives No Advanced Directives Records FoundNo Advanced Directives Records FoundNo Advanced Directives Records FoundNo Advanced Directives Records Found Additional Source Comments INFORMATION SOURCE (unrecogn ized section and content) DATE CREATED AUTHOR 05/20/2021 [facility] dical Specialist DATE CREATED AUTHOR AUTHOR'S ORGANIZ ATION 06/30/[address] [facility] DATE CREATED AUTHOR AUTHOR'S ORGANIZ ATION 01/21/2024 [facility] Specialists [facility] DATE CREATED AUTHOR AUTHOR'S ORGANIZ ATION 02/11/2024 [facility] Care Teams (unrecognized sec tion and content) Platform Builder Relationship Specialty Start Date End Date Roxanne Shaikh DO [address] [place] [address] PCP - General Family Medicine 08/10/22 Platform Builder Relationship Specialty Start Date End Date Roxanne Shaikh DO [address] [place] [address] [place] [address] PCP - General Family Medicine 08/10/22 Platform Builder Relationship Specialty Start Date End Date Roxanne Shaikh [address] [place] [address] [place] [address] PCP - General Family Medicine 08/10/22 Platform Builder Relationship Specialty Start Date End Date Maritza Chaudhry MD [address] [place] [address] PCP - General Family Medicine 05/16/23 Platform Builder Relationship Specialty Start Date End Date Maritza Chaudhry MD [address] [place] [address] PCP - General Family Medicine 05/16/23 Platform Builder Relationship Specialty Start Date End Date Maritza Chaudhry MD [address] [facility] [place] [address] [place] [address] PCP - General Family Medicine 05/16/23 Platform Builder Relationship Specialty Start Date End Date Maritza Chaudhry MD [address] [place] [address] PCP - General Family Medicine 05/16/23 Team Status: Inactive Member Role Status Dates Kinza Nava DO Attending Provider Active Start : November 16, 2023 End: November 16, 2023 Platform Builder Relationship Specialty Start Date End Date Maritza Chaudhry MD [address] [facility] [place] [address] PCP - General Family Medicine 05/16/23 Heidi Camejo NP [address] [facility] [place] [address] Nurse Practitioner Family Medicine 07/26/23 Platform Builder Relationship Specialty Start Date End Date Maritza Chaudhry MD [address] [facility] [place] [address] PCP - General Family Medicine 05/16/23 Heidi Camejo NP [address] [facility] [place] [address] Nurse Practitioner Family Medicine 07/26/23 Reason for Visit (unrecogniz ed section and content) Specialty Diagnoses / Procedures Referred By Glenna lou Referred To Contact Physical Therapy Diagnoses Chronic right shoulder pain Procedures [place] OFFICE/OUTPATIENT [facility] MDM 60-74 MINUTES Roxanne Shaikh DO [address] [place] [address] Eliot Brown, PT [address] [address] Referral ID Status Reason Start Date Expiration Date Visits Requested Visits Authorized [id number] Authorized Specialty Services Required 04/05/2023 09/18/2023 30 30 Reason Comments Shoulder Pain right Establish Care Reason Comments Pre-op Visit Goals (unrecognized section and content) Goals may be documented in a n alternate section FOR RECORDS PERTAINING TO PATIENTS WHO ARE OR HAVE BEEN ENROLLED IN A CHEMICAL DEPENDENCY/SUBSTANCEABUSE PROGRAM, SOME INFORMATION MAY BE OMITTED. This clinical summary was aggregated from multiple sources. Caution should be exercised in using it in the provision of clinical care. This summary normalizes information from multiple sources, and as a consequence, information in this document may materially change the coding, format and clinical context of patient data. In addition, data may be omitted in some cases. CLINICAL DECISIONS SHOULD BE BASED ON THE PRIMARY CLINICAL RECORDS. [facility] [employer] [facility]. provides no warranty or guarantee of the accuracy or completeness of information in this document.
[2024-02-17 07:18] LABS: Basophils Absolute Auto 0.1 10^3/uL (0.0-0.1); Basophils Percent Auto 1.3 % (0.2-2.0); Eosinophils Absolute Auto 0.5 10^3/uL (0.0-0.7); Eosinophils Percent Auto 10.6 % (0.9-7.0); Hematocrit 36.5 % (36.0-48.0); Hemoglobin 12.4 g/dL (12.0-16.0); Immature Granulocytes Abs Auto 0.01 10^3/uL (0.00-0.03); Immature Granulocytes Pct Auto 0.2 % (0.0-0.5); Lymphocytes Absolute Auto 1.5 10^3/uL (1.2-3.8); Lymphocytes Percent Auto 31.7 % (20.5-60.0); Mean Corpuscular Hemoglobin 31.2 pg (26.7-34.0); Mean Corpuscular Volume 91.9 fL (81.0-99.0); Mean Platelet Volume 9.3 fL (9.5-13.5); Monocytes Absolute Auto 0.6 10^3/uL (0.3-0.8); Monocytes Percent Auto 11.7 % (1.7-12.0); Neutrophils Absolute Auto 2.1 10^3/uL (1.4-6.5); Neutrophils Percent Auto 44.5 % (43.0-75.0); Platelet Count 373 10^3/uL (150-450); Red Blood Count 3.97 10^6/uL (4.20-5.40); Red Cell Distribution Width 12.5 % (11.0-15.0); White Blood Count 4.8 10^3/uL (4.0-11.0)
[2024-02-17] MEDS: LACTATED RINGER'S SOLUTION 1,000 ML 50 ML IV (07:35)
[2024-02-17 07:49] LABS: HCG Quantitative 2 mIU/mL
--- NOTE | 2024-02-17 09:08 | PM.ONB ---
Brief Operative Note Date of procedure: 02/17/24 Pre-op diagnosis general: thickened endometrium, aub Post-op diagnosis: other (intramural uterine fibroid) Procedure: NAME OF PROCEDURE: [ D&c hysteroscopy with myosure] PROCEDURE: The patient was taken back to the Operating Room where she was prepped and draped in normal sterile fashion after being placed under general anesthesia without difficulty. She was also placed in the dorsal lithotomy position. A weighted speculum was placed in the patient?s vagina. The anterior lip of the cervix was identified and grasped with a single tooth tenaculum. The patient?s uterus was then sounded roughly to [? 8] cm. The patient was then gently dilated using Hegar dilators. The hysteroscope was passed through the patient?s cervix into the uterus. Both ostia were identified. fluffy appearing endometrium. No gross evidence of malignancy, no gross evidence of polyps or fibroids. The myosure apparatus was placed through the scope, The myosure was engaged and endometrial curretting were removed along with intramural uterine fibroid, The hysteroscope was then removed from the uterus. The endometrial curettings were sent out to pathology. The single tooth tenaculum was then removed from the patient's anterior lip of the cervix where excellent hemostasis was noted. All instruments were removed from the patient?s vagina. The patient tolerated the procedure well. Sponge, lap and needle counts were correct times two. The patient was taken to the Recovery Room in stable condition.Room in stable condition. Anesthesia: DAMARISA Surgeon: Kiran Nava Estimated blood loss (mL): 5 Pathology: other (endometrial curretting, uterine fibroid) Condition: stable Disposition: PACU Urinary Catheter Management Urinary Catheter Management Urethral: Cath placed during this visit: no
[2024-02-17] MEDS: LACTATED RINGER'S SOLUTION 1,000 ML 150 ML IV (09:29)
== END 2024-02-17 11:05 | disposition home or self-care (01) ==
PROVIDERS: PCP Family Medicine; Visit Provider Obstetrics & Gynecology
PROC: (CPT 952; principal; 2024-02-17 08:30)
DX: D25.9 Leiomyoma of uterus, unspecified (principal); N93.9 Abnormal uterine and vaginal bleeding, unspecified; R93.89 Abnormal findings on diagnostic imaging of other specified body structures
CPT/HCPCS: 58558; 36415; 84702; 85025; 88305; J1100; J1885; J2250; J2405; J2704; J3010